=== PATIENT | male | born 1965 | race Caucasian/White ===

== ENCOUNTER 2019-08-19 08:33 | Inpatient (IN) ==
[2019-08-19] MEDS ORDERED: ZOFRAN IV PRN (10:02)
[2019-08-19] MEDS ORDERED: BENTYL PO PRN (10:02)
[2019-08-19] MEDS ORDERED: D5W 1,000 ML IV PRN (10:02)
[2019-08-19] MEDS ORDERED: ZOFRAN ODT PO PRN (10:02)
[2019-08-19] MEDS ORDERED: TUBERSOL ID ONE (10:02)
[2019-08-19] MEDS ORDERED: IMODIUM PO PRN (10:02)
[2019-08-19] MEDS ORDERED: TYLENOL PO PRN (10:02)
[2019-08-19] MEDS ORDERED: DULCOLAX PR PRN (10:02)
[2019-08-19] MEDS ORDERED: NICODERM PATCH TD PRN (10:02)
[2019-08-19] MEDS ORDERED: MOTRIN PO PRN (10:02)
[2019-08-19] MEDS ORDERED: SALINE LOCK IV FLUID XX ONE (10:02)
[2019-08-19] MEDS ORDERED: SENOKOT PO PRN (10:02)
[2019-08-19] MEDS ORDERED: PHENOBARBITAL IV PRN (10:02)
[2019-08-19] MEDS ORDERED: MAALOX PLUS LIQUID PO PRN (10:02)
[2019-08-19 12:19] LABS: HEMATOCRIT 45.5 % (42.0-52.0); HEMOGLOBIN 15.1 g/dL (14.0-18.0); MCH 31.1 PG (27-31); MCHC 33.2 g/dL (33-37); MCV 93.6 FL (81-99); MPV 10.4 FL (7.4-10.4); RBC 4.86 XMIL (4.7-6.1); RDW 12.5 % (11.5-14.5); WBC 5.52 X1000 (4.8-10.8)
[2019-08-19 12:22] LABS: INR 0.84; PROTIME 11.9 Seconds (11.0-16.0)
[2019-08-19 12:28] LABS: AMYLASE 35 U/L (20-200); LIPASE 28 U/L (13-60)
[2019-08-19 12:32] LABS: AGAP 20; ALBUMIN 5.1 g/dL (3.5-5.0); ALKALINE PHOSPHATASE 58 U/L (32-122); BUN 11 mg/dL (8-22); CALCIUM 9.8 mg/dL (8.8-10.2); CHLORIDE 93 mmol/L (98-107); COSMO 279; CREATININE 0.7 mg/dL (0.7-1.2); ESTIMATED GFR > 60; GLUCOSE 136 mg/dL (70-104); GOT 271 U/L (10-34); GPT 155 U/L (10-44); POTASSIUM 4.3 mmol/L (3.5-5.1); SODIUM 139 mmol/L (136-145); TCO2 26 mmol/L (25-35); TOTAL PROTEIN 9.1 g/dL (6.3-8.3)
[2019-08-19] MEDS ORDERED: M.V.I.-12 10 ML, FOLIC ACID 1 MG, MAGNESIUM SULFATE 1 GM, THIAMINE 100 MG in NS 1,000 ML IV ONE (13:00)
[2019-08-19 14:06] LABS: URINE SOURCE VOIDED
[2019-08-19 14:19] LABS: BILIRUBIN URINE NEGATIVE (NEGATIVE); BLOOD URINE NEGATIVE (NEGATIVE); COLOR YELLOW; GLUCOSE URINE NEGATIVE (NEGATIVE); KETONE URINE TRACE mg/dL (NEGATIVE); LEUKOCYTES URINE NEGATIVE (NEGATIVE); NITRITE URINE NEGATIVE (NEGATIVE); PROTEIN URINE 300 mg/dL (NEGATIVE); SP GRAVITY URINE 1.033; TURBIDITY URINE HAZY (CLEAR); UROBILINOGEN URINE 3 mg/dL (NORMAL)
[2019-08-19 14:22] LABS: UR AMPHETAMINES QUAL NONE DETECTED (NONE DETECT); UR BARBITUATES QUAL NONE DETECTED (NONE DETECT); UR BENZODIAZEPIN QUAL NONE DETECTED (NONE DETECT); UR CANNABINOIDS QUAL PRESUMPTIVE POSITIVE (NONE DETECT); UR COCAINE QUAL NONE DETECTED (NONE DETECT); UR METHADONE QUAL NONE DETECTED (NONE DETECT); UR METHAMPHETAMINE QUAL NONE DETECTED (NONE DETECT); UR OPIATES QUAL NONE DETECTED (NONE DETECT); UR OXYCODONE QUAL NONE DETECTED (NONE DETECT); UR PCP QUAL NONE DETECTED (NONE DETECT); UR PROPOXYPHENE QUAL NONE DETECTED (NONE DETECT); UR TCA QUAL NONE DETECTED (NONE DETECT)
[2019-08-19] MEDS: LIBRIUM PO SCH ×2 (14:23→23:10)
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
[2019-08-19 14:45] LABS: UR EPITHELIAL CELLS <10 /HPF (<10); URINE BACTERIA NEGATIVE /HPF; URINE RBC <10 /HPF (<10); URINE WBC <10 /HPF (<10)
[2019-08-19 14:56] LABS: URINE CASTS NONE SEEN; URINE CRYSTALS NONE SEEN; URINE SMALL ROUND CELLS NONE SEEN; URINE YEAST NONE SEEN
[2019-08-19] MEDS: SUBOXONE 2 MG/0.5 MG FILM SL SCH (20:06)
[2019-08-19] MEDS: ATARAX PO PRN (20:12)
[2019-08-19] MEDS: SEROQUEL PO PRN (20:21)
[2019-08-19] MEDS: DESYREL PO PRN (21:42)
[2019-08-20] MEDS: LIBRIUM PO SCH ×3 (05:15→18:01)
[2019-08-20] MEDS: VENTOLIN HFA INH SCH (10:13)
[2019-08-20] MEDS: NEURONTIN PO SCH ×3 (10:44→20:00)
[2019-08-20] MEDS: VITAMIN B-1 PO SCH (10:44)
[2019-08-20] MEDS: FOLIC ACID PO SCH (10:44)
[2019-08-20] MEDS: THERA M PLUS PO SCH (10:44)
[2019-08-20] MEDS: SUBOXONE 2 MG/0.5 MG FILM SL SCH ×2 (10:44→20:00)
[2019-08-20] MEDS: ATARAX PO PRN (12:40)
--- NOTE | 2019-08-20 13:25 | PROGRESS NOTE ---
DATE: 08/20/2019 SUBJECTIVE: Patient without any new complaints. States overall he is feeling much better. Denies any fevers or chills. OBJECTIVE: Vital Signs: On physical examination, vital signs reviewed. General: Patient is awake, alert. Currently in no distress. HEENT: Normocephalic. Neck: Supple. Cardiovascular: Regular rate. Chest: Clear. Abdomen: Soft. Extremities: Moves all extremities. Neurologic: No changes. ASSESSMENT: 1. Nausea, vomiting. 2. Abdominal pain. 3. Myalgias. 4. Paresthesias. 5. Paroxysmal sweating. 6. Alcohol abuse and withdrawal with stabilization. 7. Opioid use disorder with medication-assisted therapy, Suboxone. PLAN: We will continue patient in the hospital. Continue high-dose Librium taper. We will continue 2 mg Suboxone for now, and we will increase as tolerated. cc: Josue Walker MD
[2019-08-20] MEDS: REMERON PO SCH (19:59)
[2019-08-20] MEDS: SEROQUEL PO PRN (20:00)
[2019-08-20] MEDS: DESYREL PO PRN (22:32)
[2019-08-21] MEDS: LIBRIUM PO SCH ×5 (00:15→23:45)
[2019-08-21 04:54] LABS: HEMATOCRIT 40.3 % (42.0-52.0); HEMOGLOBIN 12.9 g/dL (14.0-18.0); MCH 30.6 PG (27-31); MCV 95.5 FL (81-99); MPV 10.8 FL (7.4-10.4); RBC 4.22 XMIL (4.7-6.1); RDW 11.9 % (11.5-14.5); WBC 2.54 X1000 (4.8-10.8)
[2019-08-21 05:09] LABS: AGAP 11; ALBUMIN 4.1 g/dL (3.5-5.0); ALKALINE PHOSPHATASE 47 U/L (32-122); BUN 12 mg/dL (8-22); CALCIUM 9.2 mg/dL (8.8-10.2); CHLORIDE 98 mmol/L (98-107); COSMO 270; CREATININE 0.6 mg/dL (0.7-1.2); ESTIMATED GFR > 60; GLUCOSE 99 mg/dL (70-104); GOT 105 U/L (10-34); GPT 86 U/L (10-44); SODIUM 135 mmol/L (136-145); TCO2 26 mmol/L (25-35); TOTAL PROTEIN 6.9 g/dL (6.3-8.3)
[2019-08-21] MEDS: VENTOLIN HFA INH SCH (07:48)
[2019-08-21] MEDS ORDERED: SALINE LOCK IV FLUID XX ONE (08:29)
[2019-08-21] MEDS ORDERED: M.V.I.-12 10 ML, FOLIC ACID 1 MG, MAGNESIUM SULFATE 1 GM, THIAMINE 100 MG in NS 1,000 ML IV ONE (10:00)
[2019-08-21] MEDS: SUBOXONE 8 MG/2 MG FILM SL SCH ×2 (10:05→20:51)
[2019-08-21] MEDS: NEURONTIN PO SCH ×3 (10:05→20:51)
[2019-08-21] MEDS: FOLIC ACID PO SCH (10:05)
[2019-08-21] MEDS: THERA M PLUS PO SCH (10:05)
[2019-08-21] MEDS: VITAMIN B-1 PO SCH (10:05)
[2019-08-21] MEDS: REMERON PO SCH (20:50)
[2019-08-21] MEDS: DESYREL PO PRN (20:51)
[2019-08-21] MEDS: SEROQUEL PO PRN (20:51)
[2019-08-21] MEDS: ATARAX PO PRN (23:23)
[2019-08-22] MEDS: LIBRIUM PO SCH ×4 (05:45→18:45)
[2019-08-22] MEDS: VENTOLIN HFA INH SCH (07:49)
[2019-08-22] MEDS: THERA M PLUS PO SCH (08:13)
[2019-08-22] MEDS: SUBOXONE 8 MG/2 MG FILM SL SCH ×2 (08:13→20:48)
[2019-08-22] MEDS: NEURONTIN PO SCH ×3 (08:13→20:49)
[2019-08-22] MEDS: VITAMIN B-1 PO SCH (08:13)
[2019-08-22] MEDS: FOLIC ACID PO SCH (08:13)
[2019-08-22 13:03] LABS: HEPATITIS PROFILE ACUTE SEE COMMENTS
--- NOTE | 2019-08-22 13:50 | PROGRESS NOTE ---
DATE: 08/21/2019 SUBJECTIVE: Patient notes he is having more tremors in his arms and hands. He is having difficulty holding a cup. States he feels a little more anxious and nervous. OBJECTIVE: Vital Signs: On physical examination, vital signs reviewed. General: He is awake, alert. He is in no respiratory distress. HEENT: Normocephalic. Neck: Supple. Cardiovascular: Regular rate. Chest: Clear. Abdomen: Soft. Extremities: Moves all extremities. Neurologic: He has no focal changes. Does have tremors. Unsure if this is more due to alcohol withdrawal or to just generalized weakness from Librium, as well as alcohol itself. Regardless, we are going to slow down his taper. Continue 50 mg today and will follow. ASSESSMENT: 1. Alcoholic hepatitis. His AST, ALT both are declining. 2. Tremors. 3. Myalgias. 4. Paresthesias. 5. Anxiety. 6. Chronic pain. We are going to continue his Suboxone. PLAN: We are going to continue Librium without tapering. We are going to increase his Suboxone due to his pain. We will continue counseling and will follow. cc: Josue Walker MD
--- NOTE | 2019-08-22 13:54 | PROGRESS NOTE ---
DATE: 08/22/2019 SUBJECTIVE: Patient is concerned that he is fatigued, tired, weak. He is having tremulousness in his arms and legs, having difficulty standing. He thinks that he is having worsening alcohol withdrawal. PHYSICAL EXAMINATION: Vital Signs: Reviewed. He is awake and alert. He is in no respiratory distress. He is sitting up in the bed, feeding himself lunch. He is generally weak when he stands but is able to stand on his own. HEENT: Normocephalic. Neck: Supple. Cardiovascular: Regular rate. Chest: Clear. Abdomen: Soft. Extremities: Moves all extremities. ASSESSMENT: 1. Chronic alcoholism with generalized weakness. 2. Alcohol withdrawal, improved. I do not believe as though his tremors in his arms and legs and full body are due to alcohol withdrawal. At this point, it is more likely due to his chronic alcoholism. 3. Alcoholic hepatitis, improving. 4. Generalized weakness. 5. Anxiety. 6. Chronic pain. PLAN: We are going to continue 4 mg twice daily of Suboxone. We will continue to wean. We will decrease Librium to 25 q.6. It is much more likely that his tremulousness is due to Librium as well as his chronic alcoholism than it is due to his current alcohol withdrawal. We will continue to follow. Expect he will be in the hospital 2 more days. cc: Josue Walker MD
[2019-08-22] MEDS: ATARAX PO PRN (15:53)
[2019-08-22] MEDS: ROBAXIN PO PRN (15:53)
[2019-08-22] MEDS: SEROQUEL PO PRN (20:49)
[2019-08-22] MEDS: REMERON PO SCH (20:49)
[2019-08-23] MEDS: ATARAX PO PRN ×2 (01:01→10:57)
[2019-08-23] MEDS: LIBRIUM PO SCH ×5 (01:01→16:30)
[2019-08-23] MEDS: VENTOLIN HFA INH SCH (07:40)
[2019-08-23] MEDS: NEURONTIN PO SCH ×3 (08:32→20:47)
[2019-08-23] MEDS: SUBOXONE 8 MG/2 MG FILM SL SCH (08:32)
[2019-08-23] MEDS: THERA M PLUS PO SCH (08:32)
[2019-08-23] MEDS: VITAMIN B-1 PO SCH (08:32)
[2019-08-23] MEDS: FOLIC ACID PO SCH (08:33)
[2019-08-23] MEDS: SUBOXONE 2 MG/0.5 MG FILM SL SCH ×2 (11:05→20:47)
--- NOTE | 2019-08-23 13:26 | PROGRESS NOTE ---
DATE: 08/23/2019 SUBJECTIVE: Patient notes that he is still weak and tremulous when he stands. However, he is able to walk to the restroom, up and down the knox without any assistance. PHYSICAL EXAMINATION: Vital Signs: Reviewed. General: Patient is awake, alert. He is in no current distress. HEENT: Normocephalic. Neck: Supple. Cardiovascular: Regular rate. Chest: Clear. Abdomen: Soft. Extremities: Moves all extremities. ASSESSMENT: 1. Nausea, resolved. 2. Abdominal pain, resolved. 3. Tremors, resolved. 4. Generalized weakness. 5. Alcohol abuse withdrawal and stabilization. 6. Opioid use disorder, currently on Suboxone. PLAN: The patient notes that he is still fatigued and weak. He has no current alcohol withdrawal symptoms. We are going to decrease his Librium. We are also going to decrease his Suboxone given his generalized weakness and see if decreasing both will help his stamina. cc: Josue Walker MD
[2019-08-23] MEDS: REMERON PO SCH (20:47)
[2019-08-24] MEDS: VENTOLIN HFA INH SCH (08:00)
[2019-08-24] MEDS: THERA M PLUS PO SCH (08:20)
[2019-08-24] MEDS: NEURONTIN PO SCH ×3 (08:20→20:49)
[2019-08-24] MEDS: LIBRIUM PO SCH ×3 (08:20→16:34)
[2019-08-24] MEDS: VITAMIN B-1 PO SCH (08:21)
[2019-08-24] MEDS: SUBOXONE 2 MG/0.5 MG FILM SL SCH ×2 (08:21→20:49)
[2019-08-24] MEDS: FOLIC ACID PO SCH (08:21)
[2019-08-24] MEDS: ATARAX PO PRN (20:49)
[2019-08-24] MEDS: SEROQUEL PO PRN (20:49)
[2019-08-24] MEDS: REMERON PO SCH (20:49)
[2019-08-24] MEDS: DESYREL PO PRN (23:07)
[2019-08-24] MEDS: ROBAXIN PO PRN (23:08)
[2019-08-25] MEDS: VENTOLIN HFA INH SCH (07:50)
[2019-08-25] MEDS: LIBRIUM PO SCH (08:47)
[2019-08-25] MEDS: NEURONTIN PO SCH (08:47)
[2019-08-25] MEDS: SUBOXONE 2 MG/0.5 MG FILM SL SCH (08:47)
[2019-08-25] MEDS: VITAMIN B-1 PO SCH (08:47)
[2019-08-25] MEDS: THERA M PLUS PO SCH (08:47)
[2019-08-25] MEDS: FOLIC ACID PO SCH (08:47)
[2019-08-25 08:51] VITALS: BP 120/92
--- NOTE | 2019-08-25 10:14 | PROGRESS NOTE ---
DATE: 08/24/2019 SUBJECTIVE: Patient notes he is still feeling weak. However, his alcohol withdrawal symptoms appear to be improving. Denies any fevers, chills. Vital signs are stable. PHYSICAL EXAMINATION: Vital Signs: He is awake, alert. He is in no distress. HEENT: Normocephalic. Neck: Supple. Cardiovascular: Regular rate. Chest: Clear. Abdomen: Soft. Extremities: Moves all extremities. Neurologic: No focal changes. ASSESSMENT: 1. Generalized weakness. 2. Adult failure to thrive. 3. Alcohol abuse withdrawal and stabilization. 4. Chronic opiate abuse and withdrawal, currently stabilized on Suboxone, although we did decrease his dose due to his generalized weakness. 5. Tremors, resolved. 6. Tremulousness from chronic alcoholism, stable. PLAN: We are going to decrease Librium, continue to follow. Hopefully he can discharge home in the a.m. if his strength improves. cc: Josue Walker MD
--- NOTE | 2019-08-25 10:26 | DISCHARGE SUMMARY ---
ADMISSION DATE: 08/19/2019 DISCHARGE DATE: 08/25/2019 DISCHARGE DIAGNOSES: 1. Nausea, resolved. 2. Tremors. Resolved. 3. Myalgias, resolved. 4. Opiate abuse, currently stable on medication assisted therapy, i.e. Suboxone. 5. Alcohol abuse withdrawal and stabilization with Librium. 6. Alcoholic hepatitis, resolved. CONSULTATIONS: None. PROCEDURES: None. BRIEF HOSPITAL COURSE: Patient is a 54-year-old male who [facility] to [facility] secondary to alcohol abuse, withdrawal and stabilization. He has a known history of opiate use disorder, currently stable on Suboxone. He was admitted to the hospital, placed on high-dose Librium taper. Did have a prolonged hospital admit secondary to his age as well as the total amount of alcohol and length of time he has been drinking. Regardless, he is improved. He is awake, alert, oriented. He has no tremors. He has no current alcohol withdrawal symptoms, although he is still having some tremulousness that should resolve over the next several weeks. His generalized weakness also should resolve over the next several weeks. He is able to ambulate back and forth to the restroom and up and down the knox without any assistance. DISPOSITION: Greater 30 minutes was spent in total care. Discussed with the patient he needs to avoid alcohol and situations which encourage him to drink. He needs outpatient life counseling as well as alcohol counseling. He needs to continue to follow up with his medication assisted therapy provider, Suboxone, for long-term treatment. Discussed the perils of alcohol, benzodiazepines and Suboxone. cc: Josue Walker MD
[2019-08-27 11:09] LABS: HCV BY PCR SEE COMMENTS
== END 2019-08-25 11:29 | disposition home or self-care (01) | DRG 897 ==
LOC: P.DIRADM 08:37 → MERGE 08:37 → P.MEDSURG 09:27
PROVIDERS: ADMIT Family Medicine; ATTEND Family Medicine